=== PATIENT | male | born 1995 | race Hispanic/Latino ===

== ENCOUNTER 2021-01-09 12:27 | Emergency (ER) | payer MEDICAID, OTHER ==
[~2021-01-09] VITALS: Ht 170.2 cm; Wt 70.3 kg
[2021-01-09 12:34] VITALS: BP 160/98
[2021-01-09 12:38] VITALS: BP 160/99
[2021-01-09 13:52] LABS: BASOPHILS % (AUTO) 0.1 % (0.0-5.0); EOSINOPHILS % (AUTO) 0.2 % (0.0-8.0); HEMATOCRIT 39.8 % (42-54); LYMPHOCYTES % (AUTO) 9.7 % (21.0-51.0); MEAN CORPUSCULAR HEMOGLOBIN 33.4 pg (27.0-33.0); MEAN CORPUSCULAR HGB CONC 34.7 g/dL (32.0-36.0); MEAN CORPUSCULAR VOLUME 96.4 fL (79-99); MONOCYTES % (AUTO) 4.9 % (3.0-13.0); NEUTROPHILS % (AUTO) 84.7 % (40.0-77.0); PLATELET COUNT (AUTO) 268 K/uL (130-400); RED BLOOD CELL COUNT(AUTO) 4.13 MIL/uL (4.50-6.20); RED CELL DISTRIBUTION WIDTH 12.1 % (11.0-15.5); WHITE BLOOD COUNT (AUTO) 8.1 K/uL (4.8-10.8)
[2021-01-09 13:59] LABS: CREATININE 0.9 mg/dL (0.5-1.5); POTASSIUM 4.6 mmol/L (3.5-5.1)
[2021-01-09] MEDS ORDERED: DiphenhydrAMINE HCL 50 MG/ML VIAL IV SCH (14:00)
[2021-01-09] MEDS ORDERED: SODIUM CHLORIDE 0.9% IV SCH (14:00)
[2021-01-09] MEDS ORDERED: FAMOTIDINE/PF 20 MG/2 ML VIAL IV SCH (14:00)
[2021-01-09] MEDS ORDERED: PROCHLORPERAZINE EDISYLATE 10 MG/2 ML VIAL IV SCH (14:00)
[2021-01-09 14:02] LABS: PROTHROMBIN TIME 10.9 SEC (9.6-11.6)
[2021-01-09 14:08] LABS: ALBUMIN 4.3 g/dL (3.5-5.0); BILIRUBIN,TOTAL 0.6 mg/dL (0.2-1.0); TOTAL PROTEIN, SERUM 8.1 g/dL (6.0-8.3)
[2021-01-09 15:39] VITALS: BP 132/84
[2021-01-09] MEDS ORDERED: THIA100P12 PO (17:25)
[2021-01-09] MEDS ORDERED: PROC5TAB54 PO (17:25)
[2021-01-09] MEDS ORDERED: FAMO-136 PO (17:25)
[2021-01-09 17:44] VITALS: BP 128/68
== END 2021-01-09 17:45 | disposition home or self-care (01) ==
LOC: EDH 12:27
DX: K29.20 Alcoholic gastritis without bleeding (principal)
CPT/HCPCS: 36415; 80053; 82150; 85025; 85610; 96374; 96375; 99284; J0780; J1200; J3490

== ENCOUNTER 2023-06-23 11:07 | Emergency (ER) | payer OTHER ==
[~2023-06-23] VITALS: Ht 175.3 cm; Wt 79.4 kg
[~2023-06-23 11:07] MED LIST: FAMO-136 PO; PROC5TAB54 PO; THIA100P12 PO
[2023-06-23] MEDS ORDERED: HYDROMORPHONE 1 MG INJ IVP ONE (12:30)
[2023-06-23 13:20] VITALS: BP 123/74; PULSE 88; RESP 16
[2023-06-23] MEDS ORDERED: IBUP-2070 PO ×2 (14:13)
== END 2023-06-23 14:52 | disposition home or self-care (01) ==
LOC: EDH 11:07
DX: S99.912A Unspecified injury of left ankle, initial encounter (principal); F41.9 Anxiety disorder, unspecified; F32.A Depression, unspecified; K21.9 Gastro-esophageal reflux disease without esophagitis; V29.99XA Rider (driver) (passenger) of other motorcycle injured in unspecified traffic accident, initial encounter; Y93.55 Activity, bike riding; Y92.89 Other specified places as the place of occurrence of the external cause; Y99.8 Other external cause status
CPT/HCPCS: 99284; 96374; 73600; 73630; 73590; J1170